=== PATIENT | male | born 1945 | race Caucasian/White ===

== ENCOUNTER 2018-09-08 06:09 | Day surgery (SDC) | payer MEDICARE ==
[~2018-09-08] VITALS: Ht 167.6 cm; Wt 83.6 kg
[~2018-09-08 06:09] MED LIST: ALBU8.5H8 IH; ASPI81TA87 PO; ATOR20TA86 PO; BENA10TA12 PO; BUDE10.2 IH; FAMO20 PO; GABA-531 PO; INSLAN SQ; INSU100C3 SQ; IPRA4AER IH; MONT10TA21 PO; PRED10 PO
[2018-09-08] MEDS ORDERED: LIDOCAINE 2% 30 ML JELLY TP ONE (06:10)
[2018-09-08] MEDS ORDERED: LIDOCAINE 4% 50 ML SOLUTION TP ONE (06:10)
[2018-09-08] MEDS ORDERED: BENZOCAINE 20% 50 MCG/SPRAY 57 GM TP ONE (06:10)
[2018-09-08] MEDS ORDERED: ALBUTEROL SULFATE 2.5 MG/0.5 ML NEB SOLUTION NEB ONE (06:10)
[2018-09-08] MEDS ORDERED: SODIUM CHLORIDE 0.9% 1,000 ML IV ONE ×2 (06:25→06:30)
[2018-09-08 07:14] LABS: GLUCOMETER DEV NAME(LOC) SDS.; GLUCOSE,POINT OF CARE 355 MG/DL (70-110)
[2018-09-08] MEDS ORDERED: APIX5TAB PO (07:23)
[2018-09-08] MEDS ORDERED: FURO20 PO (07:23)
[2018-09-08] MEDS ORDERED: BENA10TA12 PO (07:23)
[2018-09-08] MEDS ORDERED: MIDAZOLAM HCL 2 MG/2 ML VIAL ONE (08:03)
[2018-09-08] MEDS ORDERED: FentaNYL CITRATE-PF 100 MCG/2 ML VIAL ONE (08:03)
[2018-09-08] MEDS ORDERED: MethylPREDNISolone SOD SUCC 125 MG/2 ML VIAL IVP ONE (08:45)
[2018-09-08] MEDS ORDERED: OXYGEN THERAPY IH SCH (20:00)
== END 2018-09-08 10:30 | disposition home or self-care (01) ==
LOC: SURGERY 06:09
PROVIDERS: ATTEND Internal Medicine Critical Care Medicine
DX: J38.4 Edema of larynx (principal); B37.0 Candidal stomatitis; I10 Essential (primary) hypertension; E78.5 Hyperlipidemia, unspecified; E11.9 Type 2 diabetes mellitus without complications; K21.9 Gastro-esophageal reflux disease without esophagitis; G47.33 Obstructive sleep apnea (adult) (pediatric)
CPT/HCPCS: 31623; 31624; 71045; 82962; 87015; 87070; 87077; 87101; 87186; 87205; 87206; 87220; 88108; 88312; 93005; J2250; J2930; J3010; J7030